=== PATIENT | male | born 1985 | race Caucasian/White ===

== ENCOUNTER 2017-10-21 01:25 | Observation (INO) | payer MEDICAID ==
[2017-10-21] MEDS ORDERED: NS 1,000 ML IV ONE ×2 (01:33→03:12)
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
--- NOTE | 2017-10-21 01:40 | CPEKG ---
Heart Rate: 95 RR Interval: 632 P-R Interval: 116 QRSD Interval: 94 QT Interval: 356 QTC Interval: 448 P [place]: 67 QRS [place]: 55 T Wave [place]: 46 EKG Severity - NORMAL ECG - EKG Impression: SINUS RHYTHM Electronically Signed By: Richardson Tran 21-Oct-2017 06:41:18
[2017-10-21 01:52] LABS: PLATELET COUNT 235 10^3/uL (150-400)
[2017-10-21] MEDS ORDERED: IOPAMIDOL (ISOVUE 370) 100 ML BTL IV ONE (03:20)
[2017-10-21] MEDS ORDERED: AZITHROMYCIN IV 500 MG in NS 250 ML IV ONE (03:49)
[2017-10-21] MEDS ORDERED: ALBUTEROL 3 ML DEYVIAL IH PRN (04:02)
[2017-10-21] MEDS ORDERED: ONDANSETRON DISINTEGRATING 4 MG TAB PO PRN (04:02)
[2017-10-21] MEDS ORDERED: ACETAMINOPHEN 325 MG TAB PO PRN (04:02)
[2017-10-21] MEDS ORDERED: ONDANSETRON 4 MG/2 ML VIAL IVP PRN (04:02)
--- NOTE | 2017-10-21 04:23 | PDGENHP ---
History and Physical - Chief Complaint Seizure - History of Present Illness 32 yo M w/ no known PMHx presents via EMS after possible seizure. Patient woke up to EMS being gathered around him. Apparently his roommates witnessed a generalized tonic clonic seizure and called 911. He states he has had several seizures over the last year, most recently about a month ago. He has no formal diagnosis of epilepsy and takes no medication. Currently he feels "groggy" but has no other complaints. History Information - Allergies/Home Medication List Allergies/Adverse Reactions: No Known Allergies Allergy (Unverified 10/21/17 01:34) Home Medications: NK [No Known Home Meds] 10/21/17 [Last Taken Unknown] I have personally reviewed and updated: family history, medical history - Past Medical History no pertinent PMH - Surgical History Reports: no pertinent surgical hx - Family History Additional family history: Father has seizures but after TBI - Social History Smoking Status: Current every day smoker Review of Systems Review of Systems: ROS: 10pt was reviewed & negative except for what was stated in HPI & below Physical Exam Physical Exam: Temp Pulse Resp BP Pulse Ox 37 C 87 18 110/59 L 95 10/21/17 01:32 10/21/17 02:00 10/21/17 02:00 10/21/17 02:00 10/21/17 02:00 Constitutional: appears nourished, not in pain Eyes: PERRL, EOMI Ears, Nose, Mouth, Throat: moist mucous membranes, no oral mucosal ulcers Cardiovascular: regular rate and rhythym, no murmur, rub, or gallop Respiratory: no respiratory distress, no rales or rhonchi Skin: warm, normal color Musculoskeletal: full muscle strength, no muscle tenderness Neurologic: AAOx3, CN II-XII Intact Psychiatric: interacting appropriately, not anxious Lab Data & Imaging Review 10/21/17 01:30 10/21/17 01:30 WBC 7.98 10^3/uL (3.80-9.50) 10/21/17 01:30 RBC 5.16 10^6/uL (4.40-6.38) 10/21/17 01:30 Hgb 16.0 g/dL (13.7-17.5) 10/21/17 01:30 Hct 47.2 % (40.0-51.0) 10/21/17 01:30 MCV 91.5 fL (81.5-99.8) 10/21/17 01:30 MCH 31.0 pg (27.9-34.1) 10/21/17 01:30 MCHC 33.9 g/dL (32.4-36.7) 10/21/17 01:30 RDW 13.0 % (11.5-15.2) 10/21/17 01:30 Plt Count 235 10^3/uL (150-400) 10/21/17 01:30 MPV 11.8 fL (8.7-11.7) H 10/21/17 01:30 Neut % (Auto) 57.5 % (39.3-74.2) 10/21/17 01:30 Lymph % (Auto) 28.4 % (15.0-45.0) 10/21/17 01:30 [place] % (Auto) 10.5 % (4.5-13.0) 10/21/17 01:30 Eos % (Auto) 2.5 % (0.6-7.6) 10/21/17 01:30 Baso % (Auto) 0.6 % (0.3-1.7) 10/21/17 01:30 Nucleat RBC Rel Count 0.0 % (0.0-0.2) 10/21/17 01:30 Absolute Neuts (auto) 4.58 10^3/uL (1.70-6.50) 10/21/17 01:30 Absolute Lymphs (auto) 2.27 10^3/uL (1.00-3.00) 10/21/17 01:30 Absolute Monos (auto) 0.84 10^3/uL (0.30-0.80) H 10/21/17 01:30 Absolute Eos (auto) 0.20 10^3/uL (0.03-0.40) 10/21/17 01:30 Absolute Basos (auto) 0.05 10^3/uL (0.02-0.10) 10/21/17 01:30 Absolute Nucleated RBC 0.00 10^3/uL (0-0.01) 10/21/17 01:30 Immature Gran % 0.5 % (0.0-1.1) 10/21/17 01:30 Immature Gran # 0.04 10^3/uL (0.00-0.10) 10/21/17 01:30 Sodium 143 mEq/L (135-145) 10/21/17 01:30 Potassium 4.6 mEq/L (3.5-5.2) 10/21/17 01:30 Chloride 104 mEq/L (97-110) 10/21/17 01:30 Carbon Dioxide 27 mEq/l (22-31) 10/21/17 01:30 Anion Gap 12 mEq/L (8-16) 10/21/17 01:30 BUN 19 mg/dL (7-23) 10/21/17 01:30 Creatinine 0.9 mg/dL (0.7-1.3) 10/21/17 01:30 Estimated GFR > 60 10/21/17 01:30 Glucose 108 mg/dL (70-100) H 10/21/17 01:30 Calcium 9.5 mg/dL (8.5-10.4) 10/21/17 01:30 Ethyl Alcohol < 10 mg/dL (0-10) 10/21/17 01:30 Imaging Review: CT PE: (prelim) No PE Moderate bilateral posterior consolidation probably from aspiration Rt greater than left Spoke w Dr Alcaraz at 347am Finer CT Head: Normal (Prelim) Spoke w Dr Alcaraz at 206am Assessment & Plan Assessment: 32 yo M w/ no PMhx presents after possible seizure. Plan: 1. Possible seizure - Patient states he woke up to EMS gathered around him; roommates witness GTC. He has no prior diagnosis of epilepsy and does not take medication. - Admit for observation - Will hold off on anti-epileptic unless he has another event - Seizure precautions - Utox - Neurology consult 2. AHRF - Mild, borderline hypoxic on RA. CTPE shows posterior consolidation c/ w aspiration. No evidence of infection currently as patient is afebrile with normal WBC. - S/p abx in ED, blood cultures, procalcitonin - Will monitor off of antibiotics Diet - Regular Code - Full Ppx - Low risk Dispo - Admit under observation status
--- NOTE | 2017-10-21 10:50 | HOSPPROG ---
Hospitalist Progress Note Assessment/Plan: Feliberto is a 32-year-old male who was brought in via EMS after concerns of a seizure. His roommate's witnessed a generalized tonic-clonic seizure and called 911. He said he has had several seizures over the last year most recently a month ago. He currently lives at the [facility]. Today is my 1st encounter with the patient. Chart reviewed. Neurology to see. * possible seizure -patient not on any medications -on seizure precautions -urine tox screen is positive for amphetamines -patient has no history of epilepsy -patient says he has had history of seizures in the past -denies any recent alcohol use or abuse but says he has had issues with this * acute hypoxemic respiratory failure -chest x-ray is concerning for right lower lobe pneumonia -procalcitonin is low -was given antibiotics in the emergency room * plan. Spoke to Neurology they will see him today. Unclear if he should get an MRI prior to discharge because he has a history of some recent seizures. Subjective: Patient has no complaints Objective: Vital Signs Temp Pulse Resp BP Pulse Ox 37.2 C 91 16 108/53 L 92 10/21/17 07:21 10/21/17 07:21 10/21/17 07:21 10/21/17 07:21 10/21/17 07:21 10/20/17 10/21/17 10/22/17 05:59 05:59 05:59 Intake Total 2000 Output Total 150 Balance 1850 - Physical Exam Constitutional: no apparent distress, appears nourished, not in pain Ears, Nose, Mouth, Throat: hearing normal Cardiovascular: regular rate and rhythym Respiratory: no respiratory distress Gastrointestinal: normoactive bowel sounds Skin: warm Musculoskeletal: full muscle strength Neurologic: AAOx3 Psychiatric: flat affect ICD10 Worksheet Patient Problems: Problems Problem Status Onset Pneumonia Acute Pneumonitis Acute Seizure Acute
[2017-10-21 15:02] VITALS: BP 105/66; PULSE 92; RESP 18; TEMP 98.6; O2SAT 93
--- NOTE | 2017-10-21 15:30 | ASMTCASEMG ---
Living Arrangements What is your living Answers: Alone arrangement? Who do you live with? Type Of Residence What kind of residence do Answers: Homeless you live in? Type of Residence Facility Name Notes: [facility] Discharge Plan Comments Coordination Status Comments Notes: Pt is a 32 y/o man admitted for a seizure. Pt is currently living at [facility]. CM met w/ pt for dispo planning. Pt reports that he is not interested in any resources at this time. Pt would like to d/c [facility]. This was communicated to Nina Rudolph NP. CM available for changes. Plan: Independent Date Signed: 10/21/2017 03:29 PM Electronically Signed By:ISMAEL Dahl
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
== END 2017-10-21 16:12 | disposition home or self-care (01) ==
LOC: F3E 04:30
PROVIDERS: ADMIT Student in an Organized Health Care Education/Training Program; ATTEND Internal Medicine
DX: R56.9 Unspecified convulsions (principal); J96.01 Acute respiratory failure with hypoxia; R91.8 Other nonspecific abnormal finding of lung field; E86.9 Volume depletion, unspecified; F15.10 Other stimulant abuse, uncomplicated; F17.200 Nicotine dependence, unspecified, uncomplicated; Z87.820 Personal history of traumatic brain injury
CPT/HCPCS: 70450; 71046; 71275; 93005; G0378; 80305; G0480; J0456; J0696; Q9967